=== PATIENT | female | born 1995 | race Caucasian/White ===

== ENCOUNTER 2019-12-05 16:30 | Emergency (ER) | payer OTHER ==
[~2019-12-05] VITALS: Ht 157.5 cm; Wt 45.7 kg
[2019-12-05 16:31] VITALS: BP 113/58
[2019-12-05] MEDS ORDERED: AMOX500C (16:36)
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
== END 2019-12-05 18:17 | disposition home or self-care (01) ==
LOC: M ED 16:30
DX: S89.92XA Unspecified injury of left lower leg, initial encounter (principal); V47.5XXA Car driver injured in collision with fixed or stationary object in traffic accident, initial encounter; F17.200 Nicotine dependence, unspecified, uncomplicated

== ENCOUNTER 2020-09-11 16:55 | Emergency (ER) | payer OTHER ==
[~2020-09-11] VITALS: Ht 157.5 cm; Wt 47.7 kg
[~2020-09-11 16:55] MED LIST: AMOX500C
[2020-09-11 19:49] LABS: BASO # 0.1 10^3/uL (0.0-0.2); BASO % 0.8 % (0.0-1.0); EOS # 0.2 10^3/uL (0.0-0.5); EOS % 1.3 % (0.0-3.0); HEMATOCRIT 37.8 % (36.0-47.0); HEMOGLOBIN 12.7 g/dl (12.0-15.5); LYMPH # 4.5 10^3/uL (1.5-5.0); LYMPH % 39.7 % (24.0-44.0); MEAN CORPUSCULAR HEMOGLOBIN 32.6 pg (27.0-33.0); MEAN CORPUSCULAR HGB CONC 33.6 g/dl (32.0-36.5); MEAN CORPUSCULAR VOLUME 96.9 fl (80.0-96.0); MONO % 8.3 % (2.0-8.0); NEUTROPHILS # 5.6 10^3/uL (1.5-8.5); NEUTROPHILS % 49.5 % (36.0-66.0); PLATELET COUNT, AUTOMATED 261 10^3/uL (150-450); WHITE BLOOD COUNT 11.4 10^3/uL (4.0-10.0)
[2020-09-11 20:13] LABS: HCG, SERUM QUALITATIVE POSITIVE (NEGATIVE)
[2020-09-11 20:16] LABS: ALBUMIN 4.1 GM/DL (3.2-5.2); ALT/SGPT 17 U/L (12-78); BILIRUBIN,DIRECT 0.1 MG/DL (0.0-0.2); BILIRUBIN,TOTAL 0.3 MG/DL (0.2-1.0); BLOOD UREA NITROGEN 5 MG/DL (7-18); CALCIUM LEVEL 9.4 MG/DL (8.5-10.1); CARBON DIOXIDE LEVEL 27 MEQ/L (21-32); CHLORIDE LEVEL 104 MEQ/L (98-107); CREATININE FOR GFR 0.63 MG/DL (0.55-1.30); GLOMERULAR FILTRATION RATE > 60.0 (>60); GLUCOSE, FASTING 82 MG/DL (70-100); LIPASE 77 U/L (73-393); POTASSIUM SERUM 3.9 MEQ/L (3.5-5.1); SODIUM LEVEL 140 MEQ/L (136-145); TOTAL PROTEIN 7.6 GM/DL (6.4-8.2)
[2020-09-11 21:08] LABS: HCG, SERUM QUANTITATIVE 12643 MIU/ML
[2020-09-11 21:09] VITALS: BP 103/55
[2020-09-11] MEDS ORDERED: ONDANSETRON 4MG/2ML VIAL IV ONE (21:50)
--- NOTE | 2020-09-11 23:32 | REPVR ---
PROCEDURE INFORMATION: Exam: US Retroperitoneal Limited, Kidneys Exam date and time: 09/11/2020 10:03 PM Age: 25 years old Clinical indication: Pain; Other: Lt flank; ; Additional info: L flank pain, concern for hydronephrosis TECHNIQUE: Imaging protocol: Real-time ultrasound of the retroperitoneum with image documentation. Examination was focused on the kidneys. COMPARISON: US OBS FOLL UP OR REPEAT EACH GES 01/28/2015 9:50 AM FINDINGS: Right kidney: Right kidney measures 11 x 4.9 x 3.9 cm. Normal echogenicity. No hydronephrosis. Left kidney: Left kidney measures 10.2 x 4.9 x 4.8 cm. Normal echogenicity. No hydronephrosis. IMPRESSION: No acute abnormality. Electronically signed by: Abdiel Green On 09/11/2020 23:32:00 PM
--- NOTE | 2020-09-11 23:43 | REPVR ---
PROCEDURE INFORMATION: Exam: US First Trimester, Transabdominal Exam date and time: 09/11/2020 10:03 PM Age: 25 years old Clinical indication: Pain; Other: Lt flank; Gestational age or lmp: 5wks; ; Additional info: L flank, L pelvic, no vag bleeding, ensure iup, 5 wks TECHNIQUE: Imaging protocol: Real-time transabdominal obstetrical ultrasound of the maternal pelvis and a first trimester , less than 14 weeks 0 days, with image documentation. COMPARISON: US OBS FOLL UP OR REPEAT EACH GES 01/28/2015 9:50 AM FINDINGS: Gestation: Gestational sac measures 7.7 mm corresponding to 5 weeks 3 days gestation. No pole visualized. Embryonic/ heart rate: Not detected. Extra-embryonic membranes/Placenta: Unremarkable. No subchorionic bleed. Amniotic fluid: Amniotic fluid is normal for gestational age. BIOMETRY: Gestational age (AUA): 5 weeks and 3 days. MATERNAL: Uterus: Uterine size measures 7.3 x 5.2 x 5.9 cm. Uterus is anteverted. Cervix: Unremarkable. Right adnexa: Right ovary measures 3.7 x 1.9 x 2.9 cm. Hemorrhagic cyst in the right ovary measures 2.2 x 1.6 x 2.1 cm. Left adnexa: Left ovary measures 3.1 x 1.1 x 1.6 cm. Intraperitoneal space: No intraperitoneal free fluid. IMPRESSION: Single intrauterine gestation corresponding to 5 weeks and 3 days. No heart rate which may represent early gestation. Electronically signed by: Abdiel Green On 09/11/2020 23:42:31 PM
== END 2020-09-11 22:56 | disposition home or self-care (01) ==
LOC: M ED 16:55
DX: O21.9 Vomiting of pregnancy, unspecified (principal); O26.891 Other specified pregnancy related conditions, first trimester; M54.5 Low back pain; Z87.891 Personal history of nicotine dependence; Z3A.01 Less than 8 weeks gestation of pregnancy

== ENCOUNTER → 2020-09-26 | Outpatient (CLI) | payer OTHER ==
[2020-09-26 15:26] LABS: HEMATOCRIT 35.2 % (36.0-47.0); HEMOGLOBIN 11.9 g/dl (12.0-15.5); MEAN CORPUSCULAR HEMOGLOBIN 33.1 pg (27.0-33.0); MEAN CORPUSCULAR HGB CONC 33.8 g/dl (32.0-36.5); MEAN CORPUSCULAR VOLUME 97.8 fl (80.0-96.0); PLATELET COUNT, AUTOMATED 264 10^3/uL (150-450); WHITE BLOOD COUNT 10.7 10^3/uL (4.0-10.0)
[2020-09-26 15:45] LABS: HEMOGLOBIN A1c 4.9 %
[2020-09-26 16:01] LABS: FREE T4 1.04 NG/DL (0.76-1.46); THYROID STIMULATING HORMONE 0.365 uIU/ML (0.358-3.740)
[2020-09-26 16:39] LABS: HIV 1&2 SCREEN CENTAUR NEGATIVE (NEGATIVE)
[2020-09-26 16:55] LABS: GC DNA AMPLIFICATION NEGATIVE (NEGATIVE)
== END ==
LOC: M PLALAB 14:10
PROVIDERS: ATTEND Advanced Practice Midwife
DX: Z36.9 Encounter for antenatal screening, unspecified (principal); Z3A.01 Less than 8 weeks gestation of pregnancy

== ENCOUNTER → 2020-10-17 | Outpatient (REF) | payer OTHER | LOC: M SFHCWAGY 10:20 | PROVIDERS: ATTEND Advanced Practice Midwife | DX: Z36.89 Encounter for other specified antenatal screening (principal); Z3A.10 10 weeks gestation of pregnancy ==

== ENCOUNTER → 2020-11-13 | Outpatient (REF) | payer OTHER | LOC: M SFHCWAGY 17:08 | PROVIDERS: ATTEND Advanced Practice Midwife | DX: Z34.82 Encounter for supervision of other normal pregnancy, second trimester (principal) ==

== ENCOUNTER → 2020-12-25 | Outpatient (CLI) | payer OTHER ==
--- NOTE | 2020-12-25 10:50 | REP ---
INDICATION: ANATOMY COMPARISON: 09/11/2020 TECHNIQUE: Transabdominal obstetrical ultrasound with color Doppler evaluation. FINDINGS: Examination demonstrates a single live intrauterine in cephalic presentation. motion is identified by technologist. Placenta is noted posterior and grade 1 without evidence for placenta previa or abruption. Amniotic fluid volume is normal. Cervix measures 4.0 cm in length and appears closed.. Selected gestational age: 20 weeks 2 days with DANNA 05/12/2021. Gestational age by current measurements 19 weeks 5 days with DANNA 05/16/2021. FHR equals 133 beats per minute. Estimated weight 297 grams (12thpercentile). Anatomical assessment demonstrates normal structures including cranium, choroid plexus, cavum, cerebellum/posterior fossa, facial features, lungs, diaphragm, stomach, cord insertion/three-vessel cord, kidneys/bladder, spine, and extremities. IMPRESSION: Single live intrauterine in cephalic presentation demonstrating appropriate interval growth. Limited evaluation of the heart/ventricular outflow tracts noted. Remainder of the anatomical assessment is complete and normal. <Electronically signed by Paddy Tilley > 12/25/20 [id number]
== END ==
LOC: M WHC 08:56
PROVIDERS: ATTEND Advanced Practice Midwife
DX: O99.332 Smoking (tobacco) complicating pregnancy, second trimester (principal); Z3A.20 20 weeks gestation of pregnancy

== ENCOUNTER → 2021-01-27 | Outpatient (CLI) | payer OTHER ==
--- NOTE | 2021-01-27 11:57 | REP ---
INDICATION: F/U ANATOMY COMPARISON: 12/25/2020 TECHNIQUE: Transabdominal obstetrical ultrasound with color Doppler evaluation. FINDINGS: Examination demonstrates a single live intrauterine in transverse presentation. motion is identified by technologist. Placenta is noted posterior and grade 2 without evidence for placenta previa or abruption. Amniotic fluid volume is normal. Cervix measures 4.3 cm in length and appears closed.. Selected gestational age: 25 weeks 0 days with DANNA 05/12/2021. Gestational age by current measurements 24 weeks 5 days with DANNA 05/14/2021. FHR equals 147 beats per minute. Estimated weight 690 grams (18thpercentile). Anatomical assessment demonstrates normal structures including heart/ventricular outflow tracts.. IMPRESSION: Single live intrauterine in transverse lie demonstrating appropriate interval growth. In conjunction with prior examination anatomical assessment is complete and normal. <Electronically signed by Paddy Tilley > 01/27/21 [id number]
== END ==
LOC: M WHC 09:15
PROVIDERS: ATTEND Obstetrics & Gynecology
DX: Z36.2 Encounter for other antenatal screening follow-up (principal); Z3A.24 24 weeks gestation of pregnancy

== ENCOUNTER 2021-02-11 19:14 | Outpatient (CLI) | payer OTHER ==
[~2021-02-11] VITALS: Ht 157.5 cm; Wt 54.4 kg
[2021-02-11 19:30] VITALS: BP 118/64
[2021-02-11] MEDS ORDERED: PRENTAB9 PO (19:33)
--- NOTE | 2021-02-11 20:16 | IPNPDOC ---
Text Note Date of Service The patient was seen on 02/11/21. NOTE S: Pt is a 25yo G 3 P 1011 at 27W1D EGA who presents with decreased movement. O: BP 118/64 HR 104 T 99.0 FHT 125 moderate variability 10 x 10 accelerations, no decelerations TOCO acontractile movement palpated on abdominal exam A/P: Pt is a 25yo G 3 P 1011 at 27W1D EGA who presents with decreased movement Dispo: movement normalized per patient, movement palpated by jury consultant. Reassuring heart tracing appropriate for gestational age. Patient discharged home with precautions. VS,Fishbone, I+O VS, Fishbone, I+O Vital Signs Date Time Temp Pulse Resp B/P (MAP) Pulse Ox O2 Delivery O2 Flow Rate FiO2 02/11/21 19:30 99.0 104 16 118/64 (82) FRANCISCO BRAN MD Feb 11, 2021 20:16
== END 2021-02-11 20:19 | disposition home or self-care (01) ==
LOC: M LDO 19:14
PROVIDERS: ATTEND Obstetrics & Gynecology
DX: O36.8120 Decreased fetal movements, second trimester, not applicable or unspecified (principal); Z71.1 Person with feared health complaint in whom no diagnosis is made; Z3A.27 27 weeks gestation of pregnancy

== ENCOUNTER → 2021-02-26 | Outpatient (CLI) | payer OTHER ==
[~2021-02-26] MED LIST changes: +PRENTAB9 PO
[2021-02-26 11:57] LABS: HEMATOCRIT 29.5 % (36.0-47.0); HEMOGLOBIN 9.4 g/dl (12.0-15.5); MEAN CORPUSCULAR HEMOGLOBIN 30.6 pg (27.0-33.0); MEAN CORPUSCULAR HGB CONC 31.9 g/dl (32.0-36.5); MEAN CORPUSCULAR VOLUME 96.1 fl (80.0-96.0); PLATELET COUNT, AUTOMATED 240 10^3/uL (150-450); RED BLOOD COUNT 3.07 10^6/uL (4.00-5.40); WHITE BLOOD COUNT 9.2 10^3/uL (4.0-10.0)
== END ==
LOC: M PLALAB 08:27
PROVIDERS: ATTEND Advanced Practice Midwife
DX: Z36.89 Encounter for other specified antenatal screening (principal); Z3A.26 26 weeks gestation of pregnancy

== ENCOUNTER → 2021-03-12 | Outpatient (CLI) | payer OTHER | LOC: M LAB 08:25 | PROVIDERS: ATTEND Advanced Practice Midwife | DX: Z34.93 Encounter for supervision of normal pregnancy, unspecified, third trimester (principal); Z3A.00 Weeks of gestation of pregnancy not specified ==

== ENCOUNTER → 2021-03-26 | Outpatient (CLI) | payer OTHER ==
[~2021-03-26] MED LIST changes: +FERR325T3 PO
== END ==
LOC: M WHC 10:20
PROVIDERS: ATTEND Obstetrics & Gynecology
DX: O26.849 Uterine size-date discrepancy, unspecified trimester (principal); Z3A.32 32 weeks gestation of pregnancy

== ENCOUNTER 2021-03-27 13:19 | Outpatient (CLI) | payer OTHER ==
[~2021-03-27] VITALS: Ht 157.5 cm; Wt 63.4 kg
[~2021-03-27 13:19] MED LIST changes: -FERR325T3 PO
[2021-03-27] MEDS ORDERED: FERR325T3 PO (13:29)
[2021-03-27] MEDS ORDERED: HOME MED LIST COMPLETE! XX SCH (13:30)
[2021-03-27 13:33] VITALS: BP 126/73
== END 2021-03-27 14:20 | disposition home or self-care (01) ==
LOC: M LDO 13:19
PROVIDERS: ATTEND Obstetrics & Gynecology
DX: O26.893 Other specified pregnancy related conditions, third trimester (principal); N89.8 Other specified noninflammatory disorders of vagina; Z3A.33 33 weeks gestation of pregnancy

== ENCOUNTER 2021-04-03 21:16 | Outpatient (CLI) | payer OTHER ==
[~2021-04-03] VITALS: Ht 157.5 cm; Wt 65.5 kg
[~2021-04-03 21:16] MED LIST changes: +FERR325T3 PO
[2021-04-03 21:38] VITALS: BP 135/87
== END 2021-04-03 22:25 | disposition home or self-care (01) ==
LOC: M LDO 21:16
PROVIDERS: ATTEND Obstetrics & Gynecology
DX: O26.893 Other specified pregnancy related conditions, third trimester (principal); N89.8 Other specified noninflammatory disorders of vagina; O99.333 Smoking (tobacco) complicating pregnancy, third trimester; F17.210 Nicotine dependence, cigarettes, uncomplicated; Z3A.34 34 weeks gestation of pregnancy; Z87.51 Personal history of pre-term labor

== ENCOUNTER → 2021-04-07 | Outpatient (REF) | payer OTHER | LOC: M PLALAB 08:14 | PROVIDERS: ATTEND Obstetrics & Gynecology | DX: Z36.89 Encounter for other specified antenatal screening (principal); Z3A.35 35 weeks gestation of pregnancy ==

== ENCOUNTER 2021-04-08 14:50 | Outpatient (CLI) | payer OTHER ==
[~2021-04-08] VITALS: Ht 157.5 cm; Wt 65.9 kg
[2021-04-08 15:13] VITALS: BP 138/79
[2021-04-08] MEDS ORDERED: HOME MED LIST COMPLETE! XX SCH (15:15)
== END 2021-04-08 17:44 | disposition home or self-care (01) ==
LOC: M LDO 14:50
PROVIDERS: ATTEND Obstetrics & Gynecology
DX: O36.8130 Decreased fetal movements, third trimester, not applicable or unspecified (principal); Z3A.35 35 weeks gestation of pregnancy

== ENCOUNTER → 2021-04-16 | Outpatient (CLI) | payer OTHER | LOC: M WHC 07:33 | PROVIDERS: ATTEND Obstetrics & Gynecology | DX: O24.419 Gestational diabetes mellitus in pregnancy, unspecified control (principal); Z3A.34 34 weeks gestation of pregnancy ==

== ENCOUNTER → 2022-01-07 | Outpatient (REF) | payer OTHER, MEDICAID ==
[~2022-01-07] MED LIST changes: +ACET-683 PO; +COLA100C5 PO; +IBUP-1022 PO; +NIFE1TAB52 PO
== END ==
LOC: M LAB REF 23:38
PROVIDERS: ATTEND Physician Assistant
DX: R09.81 Nasal congestion (principal); R05.9 Cough, unspecified

== ENCOUNTER → 2022-03-30 | Outpatient (REF) | payer OTHER, MEDICAID ==
[~2022-03-30] MED LIST changes: +NITR100C2
[2022-03-30 18:11] LABS: APPEARANCE, URINE MANUAL CLEAR (CLEAR); COLOR, URINE MANUAL DK YELLOW (YELLOW)
[2022-03-30 18:12] LABS: SPECIFIC GRAVITY,URINE MANUAL 1.025 (1.002-1.035)
[2022-03-30 18:13] LABS: BILIRUBIN, URINE MANUAL NEGATIVE (NEGATIVE); BLOOD URINE MANUAL POSITIVE (NEGATIVE); GLUCOSE, URINE (UA) MANUAL NEGATIVE (NEGATIVE); KETONE, URINE MANUAL NEGATIVE (NEGATIVE); LEUKOCYTE ESTERASE, URINE MAN NEGATIVE (NEGATIVE); NITRITE, URINE MANUAL NEGATIVE (NEGATIVE); PROTEIN, URINE MANUAL NEGATIVE (NEGATIVE); UROBILINOGEN, URINE MANUAL NORMAL (NORMAL)
[2022-03-30 18:32] LABS: BACTERIA, URINE SMALL AMOUNT; HYALINE CAST, URINE NONE SEEN /lpf (0-1); SQUAMOUS EPITHELIAL CELL URINE LARGE AMOUNT /hpf (SMALL AMT); WBC, URINE NONE SEEN /hpf (0-3)
[2022-03-30 18:33] LABS: MUCUS, URINE LARGE AMOUNT (NEGATIVE)
== END ==
LOC: M LAB REF 16:35
PROVIDERS: ATTEND Physician Assistant Medical
DX: N39.0 Urinary tract infection, site not specified (principal)

== ENCOUNTER 2022-03-31 12:01 | Emergency (ER) | payer MEDICAID, OTHER ==
[~2022-03-31] VITALS: Ht 157.5 cm; Wt 50.5 kg
[~2022-03-31 12:01] MED LIST changes: -NITR100C2
[2022-03-31 12:02] VITALS: BP 116/68
[2022-03-31] MEDS ORDERED: NITR100C2 (12:08)
[2022-03-31 13:27] LABS: BASO % 0.2 % (0.0-1.0); EOS # 0.1 10^3/uL (0.0-0.5); EOS % 0.6 % (0.0-3.0); HEMATOCRIT 42.7 % (36.0-47.0); HEMOGLOBIN 14.2 g/dl (12.0-15.5); LYMPH # 1.3 10^3/uL (1.5-5.0); LYMPH % 10.9 % (24.0-44.0); MEAN CORPUSCULAR HEMOGLOBIN 33.5 pg (27.0-33.0); MEAN CORPUSCULAR HGB CONC 33.3 g/dl (32.0-36.5); MEAN CORPUSCULAR VOLUME 100.7 fl (80.0-96.0); MONO # 0.7 10^3/uL (0.0-0.8); MONO % 5.5 % (2.0-8.0); NEUTROPHILS # 10.1 10^3/uL (1.5-8.5); NEUTROPHILS % 82.4 % (36.0-66.0); PLATELET COUNT, AUTOMATED 241 10^3/uL (150-450); RED BLOOD COUNT 4.24 10^6/uL (4.00-5.40); WHITE BLOOD COUNT 12.3 10^3/uL (4.0-10.0)
[2022-03-31 13:54] LABS: LIPASE 27 U/L (12-53)
[2022-03-31 13:55] LABS: BILIRUBIN,DIRECT 0.2 MG/DL (<0.4); HCG, SERUM QUALITATIVE NEGATIVE (NEGATIVE)
[2022-03-31 14:39] LABS: ALBUMIN 4.2 G/DL (3.2-5.2); ALKALINE PHOSPHATASE 55 U/L (46-116); ALT/SGPT 9 U/L (7.0-40); AST/SGOT 16 U/L (<34); BILIRUBIN,TOTAL 0.5 MG/DL (0.3-1.2); BLOOD UREA NITROGEN 6 MG/DL (9-23); CALCIUM LEVEL 8.7 MG/DL (8.5-10.1); CARBON DIOXIDE LEVEL 28 MMOL/L (20-31); CHLORIDE LEVEL 104 MMOL/L (98-107); CREATININE FOR GFR 0.57 MG/DL (0.55-1.30); GLOMERULAR FILTRATION RATE > 60.0 (>60); GLUCOSE, FASTING 90 MG/DL (60-100); POTASSIUM SERUM 4.4 MMOL/L (3.5-5.1); SODIUM LEVEL 136 MMOL/L (136-145); TOTAL PROTEIN 7.3 G/DL (5.7-8.2)
== END 2022-03-31 16:24 | disposition left against medical advice (07) ==
LOC: M ED 12:01
DX: Z53.21 Procedure and treatment not carried out due to patient leaving prior to being seen by health care provider (principal)

== ENCOUNTER → 2022-04-20 | Outpatient (REF) ==
[~2022-04-20] MED LIST changes: +NITR100C2
== END ==
LOC: M EMP 13:18
PROVIDERS: ATTEND Family Medicine
DX: Z11.52 Encounter for screening for COVID-19 (principal)

== ENCOUNTER → 2022-04-27 | Outpatient (REF) | LOC: M EMP 14:44 | PROVIDERS: ATTEND Family Medicine | DX: Z53.9 Procedure and treatment not carried out, unspecified reason (principal) ==

== ENCOUNTER → 2022-04-28 | Outpatient (REF) | LOC: M EMP 07:55 | PROVIDERS: ATTEND Family Medicine | DX: Z11.52 Encounter for screening for COVID-19 (principal) ==

== ENCOUNTER → 2022-05-12 | Outpatient (REF) | payer OTHER | LOC: M LAB REF 18:20 | PROVIDERS: ATTEND Physician Assistant | DX: J02.9 Acute pharyngitis, unspecified (principal) ==

== ENCOUNTER → 2022-08-12 | Outpatient (REF) | LOC: M EMP 09:09 | PROVIDERS: ATTEND Family Medicine | DX: Z20.822 Contact with and (suspected) exposure to COVID-19 (principal) ==

== ENCOUNTER 2022-12-17 08:20 | Emergency (ER) | payer OTHER ==
[~2022-12-17] VITALS: Ht 157.5 cm; Wt 51.2 kg
[2022-12-17 09:06] LABS: HEMOGLOBIN 13.2 g/dl (12.0-15.5); MEAN CORPUSCULAR HEMOGLOBIN 33.1 pg (27.0-33.0); MEAN CORPUSCULAR VOLUME 100.3 fl (80.0-96.0); PLATELET COUNT, AUTOMATED 286 10^3/uL (150-450); RED BLOOD COUNT 3.99 10^6/uL (4.00-5.40); WHITE BLOOD COUNT 8.6 10^3/uL (4.0-10.0)
[2022-12-17 09:32] LABS: HCG, SERUM QUALITATIVE NEGATIVE (NEGATIVE)
[2022-12-17 09:33] LABS: BLOOD UREA NITROGEN 7 MG/DL (9-23); CALCIUM LEVEL 9.3 MG/DL (8.5-10.1); CARBON DIOXIDE LEVEL 26 MMOL/L (20-31); CHLORIDE LEVEL 112 MMOL/L (98-107); CREATININE FOR GFR 0.57 MG/DL (0.55-1.30); GLOMERULAR FILTRATION RATE > 60.0 (>60); GLUCOSE, FASTING 103 MG/DL (60-100); POTASSIUM SERUM 4.2 MMOL/L (3.5-5.1); SODIUM LEVEL 142 MMOL/L (136-145)
[2022-12-17 11:33] LABS: ALKALINE PHOSPHATASE 49 U/L (46-116); ALT/SGPT 12 U/L (7.0-40); AST/SGOT < 8 U/L (<34); BILIRUBIN,DIRECT < 0.1 MG/DL (<0.4); BILIRUBIN,TOTAL < 0.2 MG/DL (0.3-1.2); TOTAL PROTEIN 6.9 G/DL (5.7-8.2)
[2022-12-17 13:10] LABS: GC DNA AMPLIFICATION NEGATIVE (NEGATIVE)
[2022-12-17 13:27] VITALS: BP 105/59; TEMP 97.8; O2SAT 100
[2022-12-17] MEDS ORDERED: IBUP-1022 PO (14:18)
[2022-12-17] MEDS ORDERED: ONDA4TAB6 PO (14:18)
== END 2022-12-17 14:22 | disposition home or self-care (01) ==
LOC: M ED 08:20
DX: R11.2 Nausea with vomiting, unspecified (principal); R10.2 Pelvic and perineal pain; N89.8 Other specified noninflammatory disorders of vagina; F17.200 Nicotine dependence, unspecified, uncomplicated; Z79.83 Long term (current) use of bisphosphonates; Z79.1 Long term (current) use of non-steroidal anti-inflammatories (NSAID); Z88.0 Allergy status to penicillin; Z88.1 Allergy status to other antibiotic agents

== ENCOUNTER → 2022-12-22 | Outpatient (REF) | payer OTHER ==
[~2022-12-22] MED LIST changes: +ONDA4TAB6 PO
[2022-12-22 13:41] LABS: HEMOGLOBIN A1c 4.4 % (4.0-6.0)
[2022-12-22 13:46] LABS: CHOLESTEROL RISK RATIO 3.42 (<5); HDL CHOLESTEROL 52.2 MG/DL (>40); LDL CHOLESTEROL 112.2 MG/DL (<100); NON-HDL-C 126.8 MG/DL; PERCENT SATURATION 24.6 % (13.2-45.0)
[2022-12-22 13:47] LABS: FERRITIN 6.2 NG/ML (7.3-270.7); THYROID STIMULATING HORMONE 0.817 uIU/ML (0.55-4.78); TOTAL 25(OH) VITAMIN D 22.7 NG/ML (20.0-100.0)
== END ==
LOC: M LAB REF 12:29
PROVIDERS: ATTEND Nurse Practitioner Family
DX: E55.9 Vitamin D deficiency, unspecified (principal); Z86.39 Personal history of other endocrine, nutritional and metabolic disease; R53.83 Other fatigue; Z86.32 Personal history of gestational diabetes

== ENCOUNTER → 2023-01-25 | Outpatient (REF) | payer OTHER ==
[2023-01-27 13:10] LABS: TISSUE TRANSGLUTAMINASE IgA <2 U/mL (0-3); TISSUE TRANSGLUTAMINASE IgG 6 U/mL (0-5)
== END ==
LOC: M LAB REF 18:19
PROVIDERS: ATTEND Nurse Practitioner Family
DX: E61.1 Iron deficiency (principal)

== ENCOUNTER → 2023-03-05 | Outpatient (REF) | payer OTHER | LOC: M LAB REF 12:22 | PROVIDERS: ATTEND Nurse Practitioner Family | DX: J02.9 Acute pharyngitis, unspecified (principal) ==

== ENCOUNTER → 2023-03-29 | Outpatient (REF) | LOC: M EMP 09:33 | PROVIDERS: ATTEND Family Medicine | DX: Z11.52 Encounter for screening for COVID-19 (principal) ==

== ENCOUNTER → 2023-05-20 | Outpatient (REF) | payer OTHER | LOC: M LAB REF 12:22 | PROVIDERS: ATTEND Nurse Practitioner Family | DX: E55.9 Vitamin D deficiency, unspecified (principal) ==

== ENCOUNTER → 2023-06-01 | Outpatient (CLI) | payer OTHER ==
[2023-06-01 14:20] LABS: HEMATOCRIT 35.2 % (36.0-47.0); HEMOGLOBIN 11.8 g/dl (12.0-15.5); MEAN CORPUSCULAR HEMOGLOBIN 32.7 pg (27.0-33.0); MEAN CORPUSCULAR HGB CONC 33.5 g/dl (32.0-36.5); MEAN CORPUSCULAR VOLUME 97.5 fl (80.0-96.0); PLATELET COUNT, AUTOMATED 296 10^3/uL (150-450); RED BLOOD COUNT 3.61 10^6/uL (4.00-5.40); WHITE BLOOD COUNT 10.9 10^3/uL (4.0-10.0)
[2023-06-01 14:30] LABS: GLUCOSE CHALLENGE TEST 1 HOUR 133 MG/DL (LESS THAN 140)
[2023-06-01 15:00] LABS: HIV 1&2 SCREEN NEGATIVE (NEGATIVE)
[2023-06-01 15:08] LABS: HEPATITIS C VIRUS ABY INDEX < 0.02 INDEX (<0.8)
[2023-06-01 15:47] LABS: GC DNA AMPLIFICATION NEGATIVE (NEGATIVE)
== END ==
LOC: M PLALAB 08:31
PROVIDERS: ATTEND Obstetrics & Gynecology
DX: Z34.91 Encounter for supervision of normal pregnancy, unspecified, first trimester (principal); Z86.32 Personal history of gestational diabetes

== ENCOUNTER → 2023-06-03 | Outpatient (CLI) | payer OTHER | LOC: M LAB 07:43 | PROVIDERS: ATTEND Obstetrics & Gynecology | DX: R73.09 Other abnormal glucose (principal) ==

== ENCOUNTER 2023-06-24 08:06 | Emergency (ER) | payer OTHER ==
[~2023-06-24] VITALS: Ht 157.5 cm; Wt 53.9 kg
[2023-06-24] MEDS ORDERED: PREN1CHW4 PO (08:12)
[2023-06-24] MEDS ORDERED: IRON65TA2 PO (08:12)
[2023-06-24 09:29] LABS: BASO % 0.3 % (0.0-1.0); EOS # 0.1 10^3/uL (0.0-0.5); EOS % 0.5 % (0.0-3.0); HEMATOCRIT 35.4 % (36.0-47.0); HEMOGLOBIN 12.4 g/dl (12.0-15.5); LYMPH # 2.8 10^3/uL (1.5-5.0); LYMPH % 20.9 % (24.0-44.0); MEAN CORPUSCULAR HEMOGLOBIN 33.8 pg (27.0-33.0); MEAN CORPUSCULAR VOLUME 96.5 fl (80.0-96.0); MONO # 1.1 10^3/uL (0.0-0.8); MONO % 7.9 % (2.0-8.0); NEUTROPHILS # 9.5 10^3/uL (1.5-8.5); NEUTROPHILS % 69.8 % (36.0-66.0); PLATELET COUNT, AUTOMATED 282 10^3/uL (150-450); RED BLOOD COUNT 3.67 10^6/uL (4.00-5.40); WHITE BLOOD COUNT 13.6 10^3/uL (4.0-10.0)
[2023-06-24 09:51] VITALS: BP 109/59; TEMP 97.7; O2SAT 100
[2023-06-24 09:53] LABS: ALBUMIN 3.4 G/DL (3.2-5.2); BILIRUBIN,DIRECT 0.1 MG/DL (<0.4); BILIRUBIN,TOTAL 0.3 MG/DL (0.3-1.2); TOTAL PROTEIN 6.7 G/DL (5.7-8.2)
[2023-06-24] MEDS: ONDANSETRON 4MG 2ML VIAL IV ONE (11:42)
[2023-06-24] MEDS: NS 1,000 ML IV ONE (11:42)
[2023-06-24] MEDS: METOCLOPRAMIDE INJ 10MG/2ML VIAL IV ONE (11:42)
[2023-06-24] MEDS ORDERED: HOME MED LIST COMPLETE! XX SCH (11:45)
== END 2023-06-24 12:00 | disposition left against medical advice (07) ==
LOC: M ED 08:06
DX: O26.891 Other specified pregnancy related conditions, first trimester (principal); Z3A.13 13 weeks gestation of pregnancy; Z53.9 Procedure and treatment not carried out, unspecified reason; O24.419 Gestational diabetes mellitus in pregnancy, unspecified control; Z87.891 Personal history of nicotine dependence; Z88.0 Allergy status to penicillin
CPT/HCPCS: 76801; 80076; 81001; 83690; 85025; 93976; 96374; 96375; 99284; J2405; J2765

== ENCOUNTER → 2023-07-08 | Outpatient (REF) | payer OTHER ==
[~2023-07-08] MED LIST changes: +IRON65TA2 PO; +PREN1CHW4 PO
== END ==
LOC: M LAB REF 11:31
PROVIDERS: ATTEND Nurse Practitioner Family
DX: J00 Acute nasopharyngitis [common cold] (principal)

== ENCOUNTER → 2023-07-28 | Outpatient (REF) | payer OTHER ==
[2023-07-28 14:56] LABS: IRON (FE) 99 UG/DL (50-170); PERCENT SATURATION 28.3 % (13.2-45.0); TOTAL IRON BINDING CAPACITY 350 UG/DL (250-425)
[2023-07-28 14:57] LABS: BLOOD UREA NITROGEN < 5 MG/DL (9-23); CALCIUM LEVEL 9.1 MG/DL (8.5-10.1); CARBON DIOXIDE LEVEL 25 MMOL/L (20-31); CHLORIDE LEVEL 108 MMOL/L (98-107); CREATININE FOR GFR 0.57 MG/DL (0.55-1.30); GLOMERULAR FILTRATION RATE > 60.0 (>60); GLUCOSE, FASTING 84 MG/DL (60-100); SODIUM LEVEL 139 MMOL/L (136-145)
== END ==
LOC: M LAB REF 12:30
PROVIDERS: ATTEND Nurse Practitioner Family
DX: E61.1 Iron deficiency (principal); R73.9 Hyperglycemia, unspecified

== ENCOUNTER → 2023-08-05 | Outpatient (CLI) | payer OTHER | LOC: M WHC 07:55 | PROVIDERS: ATTEND Advanced Practice Midwife | DX: Z34.92 Encounter for supervision of normal pregnancy, unspecified, second trimester (principal); Z3A.19 19 weeks gestation of pregnancy ==

== ENCOUNTER → 2023-08-11 | Outpatient (CLI) | payer OTHER ==
[~2023-08-11] MED LIST changes: +ONDA-282 PO; -ONDA4TAB6 PO
[2023-08-11 13:47] LABS: HEMOGLOBIN A1c 4.5 % (4.0-6.0)
== END ==
LOC: M PLALAB 09:29
PROVIDERS: ATTEND Advanced Practice Midwife
DX: O24.319 Unspecified pre-existing diabetes mellitus in pregnancy, unspecified trimester (principal); Z3A.00 Weeks of gestation of pregnancy not specified

== ENCOUNTER → 2023-08-30 | Outpatient (CLI) | payer OTHER | LOC: M WHC 06:52 | PROVIDERS: ATTEND Advanced Practice Midwife | DX: Z34.82 Encounter for supervision of other normal pregnancy, second trimester (principal) ==

== ENCOUNTER → 2023-09-21 | Outpatient (CLI) | payer OTHER ==
[2023-09-21 16:07] LABS: HEMATOCRIT 32.8 % (36.0-47.0); HEMOGLOBIN 10.8 g/dl (12.0-15.5); MEAN CORPUSCULAR HEMOGLOBIN 33.5 pg (27.0-33.0); MEAN CORPUSCULAR HGB CONC 32.9 g/dl (32.0-36.5); MEAN CORPUSCULAR VOLUME 101.9 fl (80.0-96.0); PLATELET COUNT, AUTOMATED 310 10^3/uL (150-450); RED BLOOD COUNT 3.22 10^6/uL (4.00-5.40); WHITE BLOOD COUNT 13.8 10^3/uL (4.0-10.0)
[2023-09-21 16:48] LABS: HIV 1&2 SCREEN NEGATIVE (NEGATIVE)
[2023-09-21 16:55] LABS: HEPATITIS C VIRUS ABY INDEX < 0.02 INDEX (<0.8)
[2023-09-21 17:44] LABS: GC DNA AMPLIFICATION NEGATIVE (NEGATIVE)
== END ==
LOC: M PLALAB 12:18
PROVIDERS: ATTEND Obstetrics & Gynecology
DX: Z34.92 Encounter for supervision of normal pregnancy, unspecified, second trimester (principal)

== ENCOUNTER → 2023-09-21 | Outpatient (CLI) | payer OTHER | LOC: M WHC 12:34 | PROVIDERS: ATTEND Obstetrics & Gynecology | DX: O24.419 Gestational diabetes mellitus in pregnancy, unspecified control (principal); Z3A.26 26 weeks gestation of pregnancy ==

== ENCOUNTER 2023-09-29 10:12 | Outpatient (CLI) | payer OTHER ==
[~2023-09-29] VITALS: Ht 157.5 cm; Wt 56.5 kg
[2023-09-29 10:32] VITALS: BP 119/63
[2023-09-29] MEDS ORDERED: ACET500P3 PO (11:40)
[2023-09-29] MEDS ORDERED: HOME MED LIST COMPLETE! XX SCH (11:45)
== END 2023-09-29 11:00 | disposition home or self-care (01) ==
LOC: M LDO 10:12
PROVIDERS: ATTEND Advanced Practice Midwife
DX: O36.8120 Decreased fetal movements, second trimester, not applicable or unspecified (principal); O36.5920 Maternal care for other known or suspected poor fetal growth, second trimester, not applicable or unspecified; O26.892 Other specified pregnancy related conditions, second trimester; O99.012 Anemia complicating pregnancy, second trimester; O99.332 Smoking (tobacco) complicating pregnancy, second trimester; O24.415 Gestational diabetes mellitus in pregnancy, controlled by oral hypoglycemic drugs; R25.2 Cramp and spasm; D50.9 Iron deficiency anemia, unspecified; F17.210 Nicotine dependence, cigarettes, uncomplicated; Z3A.27 27 weeks gestation of pregnancy
CPT/HCPCS: 59025; G0463

== ENCOUNTER → 2023-10-08 | Outpatient (CLI) | payer OTHER, SELFPAY ==
[~2023-10-08] MED LIST changes: +ACET500P3 PO
== END ==
LOC: M WHC 11:53
PROVIDERS: ATTEND Obstetrics & Gynecology
DX: O36.5930 Maternal care for other known or suspected poor fetal growth, third trimester, not applicable or unspecified (principal); Z3A.28 28 weeks gestation of pregnancy

== ENCOUNTER → 2023-10-15 | Outpatient (CLI) | payer OTHER | LOC: M WHC 12:05 | PROVIDERS: ATTEND Obstetrics & Gynecology | DX: O36.5930 Maternal care for other known or suspected poor fetal growth, third trimester, not applicable or unspecified (principal); Z3A.29 29 weeks gestation of pregnancy ==

== ENCOUNTER → 2023-10-22 | Outpatient (CLI) | payer OTHER | LOC: M WHC 09:08 | PROVIDERS: ATTEND Obstetrics & Gynecology | DX: O36.5990 Maternal care for other known or suspected poor fetal growth, unspecified trimester, not applicable or unspecified (principal); O32.1XX0 Maternal care for breech presentation, not applicable or unspecified; Z3A.00 Weeks of gestation of pregnancy not specified ==

== ENCOUNTER → 2023-10-29 | Outpatient (CLI) | payer OTHER | LOC: M WHC 13:42 | PROVIDERS: ATTEND Obstetrics & Gynecology | DX: Z36.2 Encounter for other antenatal screening follow-up (principal); Z3A.00 Weeks of gestation of pregnancy not specified ==

== ENCOUNTER → 2023-11-05 | Outpatient (CLI) | payer OTHER | LOC: M WHC 12:49 | PROVIDERS: ATTEND Nurse Practitioner Women's Health | DX: O36.5930 Maternal care for other known or suspected poor fetal growth, third trimester, not applicable or unspecified (principal); Z3A.32 32 weeks gestation of pregnancy ==

== ENCOUNTER → 2023-11-05 | Outpatient (CLI) | payer OTHER | LOC: M WHC 12:50 | PROVIDERS: ATTEND Obstetrics & Gynecology | DX: Z53.9 Procedure and treatment not carried out, unspecified reason (principal) ==

== ENCOUNTER → 2023-11-15 | Outpatient (CLI) | payer OTHER | LOC: M WHC 08:25 | PROVIDERS: ATTEND Obstetrics & Gynecology | DX: O36.5993 Maternal care for other known or suspected poor fetal growth, unspecified trimester, fetus 3 (principal); Z3A.34 34 weeks gestation of pregnancy ==

== ENCOUNTER → 2023-11-26 | Outpatient (CLI) | payer OTHER | LOC: M WHC 07:32 | PROVIDERS: ATTEND Obstetrics & Gynecology | DX: O36.5990 Maternal care for other known or suspected poor fetal growth, unspecified trimester, not applicable or unspecified (principal) ==

== ENCOUNTER → 2023-11-26 | Outpatient (CLI) | payer OTHER | LOC: M WHC 07:33 | PROVIDERS: ATTEND Nurse Practitioner Women's Health | DX: O36.5990 Maternal care for other known or suspected poor fetal growth, unspecified trimester, not applicable or unspecified (principal); Z53.9 Procedure and treatment not carried out, unspecified reason ==

== ENCOUNTER → 2023-12-02 | Outpatient (REF) | payer OTHER | LOC: M PLALAB 07:54 | PROVIDERS: ATTEND Obstetrics & Gynecology | DX: Z36.85 Encounter for antenatal screening for Streptococcus B (principal); Z3A.36 36 weeks gestation of pregnancy ==

== ENCOUNTER 2023-12-05 12:01 | Inpatient (IN) | payer OTHER ==
[~2023-12-05] VITALS: Ht 157.5 cm; Wt 60.9 kg
[2023-12-05] VITALS (32 sets, daily range): BP systolic 100–158; BP diastolic 49–95; O2SAT 96–97
[2023-12-05 12:32] LABS: HEMATOCRIT 33.4 % (36.0-47.0); HEMOGLOBIN 11.1 g/dl (12.0-15.5); MEAN CORPUSCULAR HEMOGLOBIN 32.7 pg (27.0-33.0); MEAN CORPUSCULAR HGB CONC 33.2 g/dl (32.0-36.5); MEAN CORPUSCULAR VOLUME 98.5 fl (80.0-96.0); PLATELET COUNT, AUTOMATED 268 10^3/uL (150-450); RED BLOOD COUNT 3.39 10^6/uL (4.00-5.40); WHITE BLOOD COUNT 11.8 10^3/uL (4.0-10.0)
[2023-12-05] MEDS ORDERED: LIDOCAINE 1% MDV 20ML VIAL INFIL PRN (13:10)
[2023-12-05] MEDS ORDERED: CARBOPROST TROMETHAMINE 250 MCG/ML AMP IM PRN (13:10)
[2023-12-05] MEDS ORDERED: TRANEXAMIC ACID INJection 1,000 MG in NS 100 ML IV PRN (13:10)
[2023-12-05] MEDS ORDERED: OXYTOCIN DRIP 30 UNITS in IV 1 EA IV PRN (13:10)
[2023-12-05] MEDS ORDERED: HOME MED LIST COMPLETE! XX SCH (13:10)
[2023-12-05] MEDS ORDERED: METHYLERGONOVINE MALEATE 0.2MG/ML 1ML VIAL IM PRN (13:10)
[2023-12-05] MEDS: LR 1,000 ML IV SCH (13:21)
[2023-12-05] MEDS ORDERED: GLUCOSE 4 GM CHEW PO PRN (13:25)
[2023-12-05] MEDS ORDERED: GLUCAGON INJ 1MG VIAL SC PRN (13:25)
[2023-12-05] MEDS ORDERED: DEXTROSE 50% 50ML SYRINGE IV PRN (13:25)
[2023-12-05] MEDS: INSULIN LISPRO (NovoLOG) PER UNIT SC SCH (13:25)
[2023-12-05] MEDS: OXYTOCIN DRIP 30 UNITS in IV 1 EA IV SCH (13:29)
[2023-12-05 13:35] LABS: HEPATITIS C VIRUS ABY INDEX < 0.02 INDEX (<0.8)
[2023-12-05] MEDS ORDERED: INSU100I14 SQ (14:19)
[2023-12-05] MEDS ORDERED: CLAR10CA3 PO (15:33)
[2023-12-05] MEDS ORDERED: FLON1SPR NARES (15:36)
[2023-12-05] MEDS ORDERED: AZEL1SPR3 NARES (15:37)
[2023-12-05] MEDS ORDERED: ONDANSETRON 4MG 2ML VIAL IV PRN (22:15)
[2023-12-05] MEDS ORDERED: NALOXONE INJ 0.4MG/1ML VIAL IV PRN (22:15)
[2023-12-05] MEDS ORDERED: diphenhydrAMINE 50MG/ML VIAL IV PRN (22:15)
[2023-12-05] MEDS ORDERED: EPIDURAL/PCA KEYS XX PRN (22:15)
[2023-12-05] MEDS: LACTATED RINGER'S 1000 ML IV STA (22:31)
[2023-12-05] MEDS: FENTANYL/ROPIVACAINE/NACL BAG 100 ML EPIDURAL SCH (22:42)
[2023-12-06] VITALS (26 sets, daily range): BP systolic 93–202; BP diastolic 47–110; O2SAT 98–99
[2023-12-06] MEDS: ePHEDrine SULFATE 25 MG/5 ML(5MG/ML) SYRINGE IVP PRN (00:23)
[2023-12-06] MEDS: LR 500 ML IV PRN (00:24)
[2023-12-06] MEDS: ceFAZolin SOD 2 GM in IV 1 EA IV ONE (07:05)
[2023-12-06] MEDS ORDERED: DIBUCAINE 1% OINTMENT 30GM TOP PRN (07:15)
[2023-12-06] MEDS ORDERED: CALCIUM CARBONATE 500 MG CHEW U/D PO PRN (07:15)
[2023-12-06] MEDS ORDERED: ANUSOL HC CREAM 30GM TOP PRN (07:15)
[2023-12-06] MEDS ORDERED: IBUPROFEN 600MG TAB PO PRN (07:15)
[2023-12-06] MEDS ORDERED: RHO(D) IMMUNE GLOBULIN/MALTOSE 500MCG(2500IU)/2.2ML VIAL (WINRHO) IM SCH (07:15)
[2023-12-06] MEDS: OXYTOCIN DRIP 30 UNITS in IV 1 EA IV SCH (07:15)
[2023-12-06] MEDS ORDERED: DOCUSATE SODIUM 100MG CAPSULE PO PRN (07:15)
[2023-12-06] MEDS ORDERED: ACETAMINOPHEN TAB 650MG DOSE (2X325MG) PO PRN (07:15)
[2023-12-06] MEDS: ONDANSETRON 4MG 2ML VIAL IV PRN (08:04)
[2023-12-06] MEDS: ACETAMINOPHEN 500 MG TAB PO PRN (08:39)
[2023-12-06] MEDS: IBUPROFEN 800 MG TAB PO PRN (10:07)
[2023-12-06] MEDS: LR 1,000 ML IV SCH (13:00)
[2023-12-06] MEDS: PRENATAL VITAMINS CHEWABLE TABLET PO SCH (13:03)
[2023-12-07 02:00] VITALS: BP 104/52; O2SAT 98
[2023-12-07 06:00] VITALS: BP_SYST 104; BP_SYST 112; BP_DIAS 52; BP_DIAS 61; O2SAT 98; O2SAT 99
[2023-12-07 10:15] VITALS: BP 136/78; O2SAT 98
[2023-12-07] MEDS ORDERED: IBUP80TA PO (13:47)
[2023-12-07] MEDS ORDERED: ACET-683 PO (13:47)
[2023-12-08] MEDS ORDERED: MEASLES,MUMPS,RUBELLA VACCINE INJ (MMR-II) SC.IMMUN ONE (09:00)
== END 2023-12-07 14:02 | disposition home or self-care (01) | DRG 541 ==
LOC: M LDI 12:01 → M OBS 12-06 09:30
PROVIDERS: ADMIT Obstetrics & Gynecology; ATTEND Obstetrics & Gynecology
PROC: 3E033VJ Introduction of Other Hormone into Peripheral Vein, Percutaneous Approach (ICD-10-PCS; 2023-12-05)
PROC: 10E0XZZ Delivery of Products of Conception, External Approach (ICD-10-PCS; principal; 2023-12-06)
PROC: 10D17Z9 Manual Extraction of Products of Conception, Retained, Via Natural or Artificial Opening (ICD-10-PCS; 2023-12-06)
DX: O36.5933 Maternal care for other known or suspected poor fetal growth, third trimester, fetus 3 (principal); D50.9 Iron deficiency anemia, unspecified; O24.424 Gestational diabetes mellitus in childbirth, insulin controlled; O99.02 Anemia complicating childbirth; Z3A.37 37 weeks gestation of pregnancy; Z37.0 Single live birth; O73.0 Retained placenta without hemorrhage

== ENCOUNTER → 2024-01-28 | Outpatient (REF) | payer OTHER, MEDICAID ==
[~2024-01-28] MED LIST changes: +AZEL1SPR3 NARES; +CLAR10CA3 PO; +FLON1SPR NARES; +IBUP80TA PO; +INSU100I14 SQ
== END ==
LOC: M LAB REF 11:14
PROVIDERS: ATTEND Nurse Practitioner Family
DX: J06.9 Acute upper respiratory infection, unspecified (principal)

== ENCOUNTER 2024-03-29 08:40 | Day surgery (SDC) | payer OTHER ==
[~2024-03-29] VITALS: Ht 157.5 cm; Wt 54.9 kg
[2024-03-29 09:08] LABS: HEMATOCRIT 40.5 % (36.0-47.0); HEMOGLOBIN 13.5 g/dl (12.0-15.5); MEAN CORPUSCULAR HEMOGLOBIN 32.5 pg (27.0-33.0); MEAN CORPUSCULAR HGB CONC 33.3 g/dl (32.0-36.5); MEAN CORPUSCULAR VOLUME 97.6 fl (80.0-96.0); PLATELET COUNT, AUTOMATED 311 10^3/uL (150-450); RED BLOOD COUNT 4.15 10^6/uL (4.00-5.40); WHITE BLOOD COUNT 8.8 10^3/uL (4.0-10.0)
[2024-03-29] MEDS ORDERED: LR 1,000 ML IV SCH (10:10)
[2024-03-29] MEDS ORDERED: ROCURONIUM BROMIDE 50MG/5ML VIAL As Ordered ONE (10:27)
[2024-03-29] MEDS ORDERED: KETOROLAC 60MG 2ML VIAL As Ordered ONE (10:27)
[2024-03-29] MEDS ORDERED: ONDANSETRON 4MG 2ML VIAL As Ordered ONE (10:27)
[2024-03-29] MEDS ORDERED: fentaNYL 100 MCG/2 ML INJECTION As Ordered ONE (10:27)
[2024-03-29] MEDS ORDERED: dexmedeTOMIDine (4MCG/ML)200MCG/50ML BTL (PRECEDEX) As Ordered ONE (10:27)
[2024-03-29] MEDS ORDERED: MIDAZOLAM INJ 2MG/2ML VIAL As Ordered ONE (10:27)
[2024-03-29] MEDS ORDERED: LIDOCAINE 2% 100MG/5ML SDV (FOR ANES.) As Ordered ONE (10:27)
[2024-03-29] MEDS ORDERED: SUGAMMADEX SODIUM 500 MG/5 ML VIAL (BRIDION) As Ordered ONE (10:27)
[2024-03-29] MEDS ORDERED: propofoL 200 MG/20 ML VIAL As Ordered ONE (10:27)
[2024-03-29] MEDS ORDERED: HYDROmorphone HCL 2MG/ML 1ML VIAL As Ordered ONE (12:02)
[2024-03-29] MEDS ORDERED: ACETAMINOPHEN 1000MG/100ML IV BAG As Ordered ONE (12:05)
[2024-03-29] MEDS ORDERED: ESMOLOL INJ 100MG/10ML VIAL As Ordered ONE (12:46)
[2024-03-29] MEDS ORDERED: PHENYLephrine 500MCG 5ML (100MCG/ML) SYRINGE As Ordered ONE (13:08)
[2024-03-29] MEDS ORDERED: fentaNYL 100 MCG/2 ML INJECTION IV PRN (13:35)
[2024-03-29] MEDS ORDERED: ONDANSETRON 4MG 2ML VIAL IV PRN (13:35)
[2024-03-29] MEDS ORDERED: MORPHINE 2 MG/ML 1ML VIAL IV PRN (13:35)
[2024-03-29] MEDS ORDERED: oxyCODONE 5MG TAB PO PRN (13:35)
[2024-03-29] MEDS ORDERED: PERC5TAB12 PO (13:42)
[2024-03-29] MEDS ORDERED: IBUP1TAB7 PO (13:47)
[2024-03-29] MEDS ORDERED: COLA100C5 PO (13:47)
[2024-03-29 14:23] VITALS: BP 94/54; TEMP 97.4; O2SAT 100
== END 2024-03-29 15:00 | disposition home or self-care (01) ==
LOC: M SDC 08:40
PROVIDERS: ATTEND Obstetrics & Gynecology
DX: Z30.2 Encounter for sterilization (principal); Z88.0 Allergy status to penicillin
CPT/HCPCS: 36415; 58661; 81025; 85027; 86850; 86900; 86901; 88302; J0131; J0665; J1100; J1171; J1805; J1885; J2250; J2371; J2405; J3010

== ENCOUNTER → 2024-06-08 | Outpatient (REF) | payer OTHER ==
[~2024-06-08] MED LIST changes: +IBUP1TAB7 PO; +PERC5TAB12 PO
[2024-06-08 18:44] LABS: IRON (FE) 69 UG/DL (50-170); PERCENT SATURATION 19.8 % (13.2-45.0); TOTAL IRON BINDING CAPACITY 348 UG/DL (250-425)
[2024-06-08 18:45] LABS: BLOOD UREA NITROGEN 7 MG/DL (9-23); CARBON DIOXIDE LEVEL 27 MMOL/L (20-31); CHLORIDE LEVEL 106 MMOL/L (98-107); CREATININE FOR GFR 0.68 MG/DL (0.55-1.30); GLOMERULAR FILTRATION RATE > 60.0 (>60); GLUCOSE, FASTING 81 MG/DL (60-100); MAGNESIUM LEVEL 2.1 MG/DL (1.8-2.4); POTASSIUM SERUM 4.2 MMOL/L (3.5-5.1); SODIUM LEVEL 139 MMOL/L (136-145)
[2024-06-08 18:46] LABS: FERRITIN 10.7 NG/ML (7.3-270.7); THYROID STIMULATING HORMONE 0.958 uIU/ML (0.55-4.78)
[2024-06-08 18:47] LABS: FOLATE 9.6 NG/ML (>5.4); VITAMIN B12 LEVEL 572 PG/ML (211-911)
== END ==
LOC: M LAB REF 17:39
PROVIDERS: ATTEND Nurse Practitioner Family
DX: E61.1 Iron deficiency (principal); R51.9 Headache, unspecified; Z68.20 Body mass index [BMI] 20.0-20.9, adult